=== PATIENT | female | born 1950 | race Caucasian/White ===

== ENCOUNTER → 2016-06-28 | Outpatient (CLI) | payer BC ==
[~2016-06-28] MED LIST: FUROSEMIDE 40 MG/4 ML VIAL ONE
--- NOTE | 2016-06-28 17:05 | NM ---
Renal Scintigraphy with Lasix History: 66-year-old with reported history of right renal mass. Comparison: None available. Technique: Following the uneventful intravenous administration of 11.5 mCi technetium 99m MAG3, plana r flow images of the abdomen and pelvis were obtained. Time activity curves were generated before and after the uneventful intravenous administration of 17.2 mg of Lasix IV 15 minutes into the exam. Dif ferential uptake and clearance are calculated. Findings: The left kidney is significantly larger than the right. There is increased blood flow to th e left kidney compared to the right. Relative function in the kidneys is 76% in the left kidney, 24% in the right kidney. Excretion from the kidneys is normal with no evidence of obstruction. T half max imum in the left kidney is 7.6 minutes and in the right kidney is 9.9 minutes. T half maximum post L asix is 6.5 minutes in the left kidney and 7.2 minutes in the right kidney. Impression: Small right kidney with diminished split function as above, with no evidence of obstructi on.
== END ==
LOC: FIMAGING 09:26
PROVIDERS: ATTEND Physician Assistant Medical
DX: N27.0 Small kidney, unilateral (principal)
CPT/HCPCS: 78708; A9562

== ENCOUNTER → 2016-06-29 | Outpatient (CLI) | payer BC ==
--- NOTE | 2016-06-29 16:37 | DX ---
Chest, PA and Lateral History: Right renal tumor. Staging. Findings: Lungs are clear, without mass, nodule infiltrate or co nsolidation. Heart size is normal. There is no adenopathy or pleural effusion. No lytic or sclerotic bone lesions are identified. A mild thoracic dextroscoliosis is stable. Right chest wall surgical cli ps are stable. Impression: Normal. No evidence for metastatic renal cancer.
== END ==
LOC: FIMAGING 13:41
PROVIDERS: ATTEND Physician Assistant Medical
DX: Z03.89 Encounter for observation for other suspected diseases and conditions ruled out (principal); C64.1 Malignant neoplasm of right kidney, except renal pelvis

== ENCOUNTER 2016-08-07 07:15 | Inpatient (IN) | payer BC, OTHER ==
--- NOTE | 2016-08-16 15:16 | GHP ---
[f rep st] PREOP HISTORY AND PHYSICAL ADMISSION DIAGNOSIS: Right lower pole renal mass, possible renal cell carcinoma. HISTORY OF PRESENT ILLNESS: This 66-year-old lady originally was noted because she had had persistent cystitis and was sent to urology from [facility]. She presented with imaging that showed she had a 3 cm mid to lower pole right renal mass with Hounsfield units of 31 precontrast and 118 postcontrast concerning for neoplasm. The right kidney is atrophied compared to the left. The left mid-pole stone appears perhaps to be in the wall of the kidney on the imaging, and she also has a kidney wall infarct noted on the left and the right kidney. Normal-appearing contrast fills the bladder without any bladder lesions. She has had a differential function study done that shows 24% of her renal function from the right side, 76% from the left. At the present time, we discussed the various options of therapy being a right partial robotic-assisted nephrectomy versus a radical right nephrectomy, and at the present time the plan is to attempt to do a partial nephrectomy on the right side with preservation of nephrons and if I feel it is necessary, then remove the entire kidney. She is aware that the kidney, being patulous and atrophic and mildly hydronephrotic, infections and complications are higher in that situation. At the present time, she is admitted for the above procedure. She has had a positive E coli infection in April 2016 treated with Bactrim and then switched to amoxicillin. Her only urinary symptoms have been some mild urgency. PAST MEDICAL HISTORY: Breast cancer, hypertension, kidney stone, osteoporosis, and urge incontinence. PAST SURGICAL HISTORY: Appendectomy and breast cancer. MEDICATIONS: Bystolic 10 mg a day, calcium, cephalexin, Fetzima, methenamine, tamoxifen, and vitamin D. ALLERGIES: No known drug allergies. FAMILY HISTORY: Heart disease and hypertension. SOCIAL HISTORY: [employer], moderate alcohol consumption, former smoker. and denies illicit substance use. REVIEW OF SYSTEMS: Negative for cardiac, respiratory, GI, and endocrine. PHYSICAL EXAM: VITAL SIGNS: Stable. CHEST: Clear. HEART: Regular rate and rhythm. ABDOMEN: Normal. No organomegaly, rebound, or guarding. EXTREMITIES : Lower extremities are normal. PLAN: At the present time, she is admitted for the right partial nephrectomy laparoscopic/robotic assisted with possible conversion to a right nephrectomy. Written and verbal consent has been obtained. She appeared to be well informed and was admitted for the above procedure. /[id number]/MODL MTDD
[2016-08-17] MEDS ORDERED: THROMBIN (RECOMBINANT) 5,000 UNIT VIAL TP ONE (06:52)
[2016-08-17] MEDS ORDERED: MANNITOL 20% 100 GM/500 ML BAG IV ONE (06:52)
[2016-08-17] MEDS ORDERED: SKIN ADHESIVE (DERMABOND) 1 EACH TP ONE (06:52)
[2016-08-17] MEDS ORDERED: LIDOCAINE 1% 2 ML INJ ONE (06:52)
[2016-08-17] MEDS ORDERED: PROPOFOL 200 MG/20 ML VIAL ONE (07:10)
[2016-08-17] MEDS ORDERED: METOCLOPRAMIDE 10 MG/2 ML VIAL ONE (07:11)
[2016-08-17] MEDS ORDERED: RANITIDINE 50 MG/2 ML VIAL ONE (07:11)
[2016-08-17] MEDS ORDERED: METOPROLOL TARTRATE 5 MG/5 ML INJ ONE (07:11)
[2016-08-17] MEDS ORDERED: ROCURONIUM 100 MG/10 ML VIAL ONE (07:11)
[2016-08-17] MEDS ORDERED: DEXAMETHASONE 4 MG/ML VIAL ONE ×2 (07:11)
[2016-08-17] MEDS ORDERED: LIDOCAINE 2% 100 MG/5 ML SYR ONE (07:12)
[2016-08-17] MEDS ORDERED: MIDAZOLAM 2 MG/2 ML VIAL ONE (07:21)
[2016-08-17] MEDS ORDERED: ceFAZolin 2 GM/DEXTROSE 100 ML IV ONE (07:30)
[2016-08-17] MEDS ORDERED: D5W LR 1,000 ML IV ONE (07:30)
[2016-08-17] MEDS ORDERED: LABETALOL HCL 5 MG/ML 20 ML MDV ONE (08:19)
[2016-08-17] MEDS ORDERED: BUPIVACAINE 0.5% 30 ML SDV ONE (09:32)
[2016-08-17] MEDS ORDERED: HYDROmorphONE/DILAUDID 1 MG/ML SYR ONE (10:29)
[2016-08-17] MEDS ORDERED: HYDROmorphONE/DILAUDID 1 MG/ML SYR IVP PRN (10:30)
[2016-08-17] MEDS ORDERED: ACETAMINOPHEN 325 MG TAB PO PRN (10:30)
[2016-08-17] MEDS ORDERED: ONDANSETRON 4 MG/2 ML VIAL IVP PRN (10:30)
[2016-08-17] MEDS ORDERED: ONDANSETRON DISINTEGRATING 4 MG TAB PO PRN (10:30)
--- NOTE | 2016-08-17 11:14 | GOP ---
[f rep st] OPERATIVE REPORT DATE OF OPERATION: 08/17/2016 SURGEON: Shayan Licona MD GRANULATOR TENDER: Marisabel Loredo CFA. ANESTHESIA: Dr. Zepeda provided general anesthesia. PREOPERATIVE DIAGNOSIS: Right renal mass suspicious for malignancy. POSTOPERATIVE DIAGNOSIS: Right renal mass suspicious for malignancy. PROCEDURE PERFORMED: FINDINGS: ESTIMATED BLOOD LOSS: Per Anesthesia. DESCRIPTION OF PROCEDURE: After undergoing general anesthesia, appropriate time -out, being prepped and draped in normal sterile fashion, padded in the appropriate position, and confirming the appropriate operative side, the Veress needle was placed in the supraumbilical site and insufflated the abdomen to 15 mmHg pressure with carbon dioxide. At that point, a 12 mm camera port was placed, two 8 mm robot ports were placed, then a 12 mm community relations assistant port. During the case, we placed a 5 mm port for liver retraction. All of these were under direct vision. Then, at that point mobilized the right colon and duodenum where I could identify the ureter and dissected that out to the point where I could identify the ureter and gonadal vein. The gonadal vein was dissected up and Hem-o-tanya clipped it as it came off just below the bifurcation of the right renal vein and vena cava. At that point, I dissected out where I could identify the vessels and for clamping as deemed necessary. De-fatted the kidney , and as I was de-fatting it, going to the posteroinferior pole lesion, it appeared that there was a dense inflammatory reaction, almost as though there was going to be a positive tumor going into the perinephric fat. So, at that point, I elected to do a total nephrectomy. Due to the fact that clinically the staging seemed to be a T2 lesion on that perinephric fat inflammatory reaction, there is not a good dissection plane between the two, so I elected to do a total nephrectomy. With the vascular stapler, went across the renal vein and artery, and then dissected the adrenal gland off the top of the kidney so as to preserve it. I then went along that vascular fatty area of the upper part of the kidney with the stapler. With electrocautery and scissors, I could mobilize the kidney, and then a vascular staple was placed across the ureter and gonadal vein cephalad to the iliac vein. At the end of the procedure, we decreased the intraabdominal pressure to 5 mmHg. There was no bleeding identified. Irrigated the kidney bed, and then placed the kidney in a retrieval bag after replacing the 12 mm community relations assistant port with the 15 mm port. Then at that point, the fascial closure device closed the camera port under direct vision with an 0 Vicryl and then extended our incision below the umbilicus in the midline to deliver the specimen out. Hemostasis was identified on the wound edges, and then the infraumbilical community relations assistant port extended incision was closed with an 0 Vicryl, and wounds were irrigated. Infiltrated the operative areas with Marcaine. Irrigated the subcutaneous tissue, and it was hemostatic. Then the skin approximated with 4-0 Monocryl and Dermabond placed. She tolerated the procedure well. PROCEDURE: Robotic-assisted radical nephrectomy and partial ureterectomy. CONSENT: Preoperatively, we discussed with the patient and her family that an attempt to do a partial nephrectomy was at hand, but because of the location of the tumor and decreased renal function on the right side, that we may end up doing a total nephrectomy with partial ureterectomy. Written and verbal consent was obtained. They were aware of the potential options of the surgery. SPECIMEN SENT TO PATHOLOGY: I did cut the specimen so I could identify the tumor to see grossly if it appeared it was involving the fatty tissue, and grossly it had that appearance to me. Final path is pending. No frozen sections obtained, and there is no gross disease noted. The gallbladder was normal at the end of the procedure with no staining, liver was not bleeding, and there was no staining in the intraabdominal cavity. She tolerated the procedure well and will be admitted for postoperative care. /[id number]/MODL MTDD
[2016-08-17] MEDS ORDERED: fentaNYL 100 MCG/2 ML INJ ONE (11:18)
[2016-08-17] MEDS: oxyCODONE IR 5 MG TAB PO PRN ×4 (13:05→23:35)
[2016-08-17] MEDS: D5W 1/2 NS W/ 20 KCl/L 1,000 ML IV SCH (23:58)
[2016-08-18] MEDS: oxyCODONE IR 5 MG TAB PO PRN ×5 (05:09→23:21)
[2016-08-18 06:04] LABS: ANION GAP 11 mEq/L (8-16); CALCIUM 8.7 mg/dL (8.5-10.4); CARBON DIOXIDE 23 mEq/l (22-31); CHLORIDE 106 mEq/L (97-110); CREATININE 0.7 mg/dL (0.6-1.0); GLOMERULAR FILTRATION RATE > 60; GLUCOSE 95 mg/dL (70-100); SODIUM 140 mEq/L (134-144)
[2016-08-18 08:23] LABS: % IMMATURE GRANULYOCYTES 0.3 % (0.0-1.1); ABSOLUTE IMMATURE GRANULOCYTES 0.04 10^3/uL (0.00-0.10); ADD DIFF? NO; ADD MORPH? NO; ADD SCAN? NO; ATYPICAL LYMPHOCYTE FLAG 0 (0-99); FRAGMENT RBC FLAG 0 (0-99); HEMATOCRIT 39.8 % (38.0-47.0); HEMOGLOBIN 13.2 g/dL (12.6-16.3); LEFT SHIFT FLG 0 (0-99); LIPEMIA HEMOLYSIS FLAG 80 (0-99); MEAN CELL HEMOGLOBIN 30.1 pg (27.9-34.1); MEAN CELL HEMOGLOBIN CONCENTR. 33.2 g/dL (32.4-36.7); MEAN CELL VOLUME 90.7 fL (81.5-99.8); MEAN PLATELET VOLUME 10.4 fL (8.7-11.7); PLATELET CLUMPS FLAG 0 (0-99); PLATELET COUNT 202 10^3/uL (150-400); RED BLOOD CELL COUNT 4.39 10^6/uL (4.18-5.33); RED CELL DISTRIBUTION WIDTH 12.8 % (11.5-15.2)
--- NOTE | 2016-08-18 08:34 | SOAPPROG ---
SOAP Progress Note Assessment/Plan: Assessment: Renal mass, right Acute POD # 1, labs ok, progressing well Plan: consider dc later today 08/18/16 09:00 Subjective: doing well Objective: Vital Signs Temp Pulse Resp BP Pulse Ox 36.8 C 85 14 121/78 H 97 08/18/16 08:00 08/18/16 08:00 08/18/16 08:00 08/18/16 08:00 08/18/16 08:00 Laboratory Results 08/18/16 07:57 08/18/16 05:37 08/17/16 08/18/16 08/19/16 05:59 05:59 05:59 Intake Total 2350 Output Total 2360 Balance -10 Physical Exam - Physical Exam General Appearance: alert Respiratory: lungs clear, No respiratory distress Cardiac/Chest: regular rate, rhythm Abdomen: soft (port sites normal) Back: No CVA tenderness Skin: warm/dry Extremities: No calf tenderness, No Maritza's sign Neuro/Psych: alert, oriented x 3 ICD10 Worksheet Patient Problems: Problems Problem Status Onset Renal mass, right Acute Malignant tumor of breast Active
[2016-08-18] MEDS ORDERED: NEBIVOLOL HCL 5 MG TAB PO SCH (09:00)
[2016-08-18] MEDS ORDERED: FETZIMA PO SCH (09:00)
[2016-08-18] MEDS ORDERED: PRILOSEC 20 MG PO SCH (09:00)
[2016-08-18] MEDS ORDERED: [UNRECOGNIZED DRUG - OTHER] PO SCH (09:00)
[2016-08-18] MEDS ORDERED: FETZIMA 40 MG PO SCH (09:00)
[2016-08-18] MEDS ORDERED: BYSTOLIC 5 MG PO SCH (09:00)
[2016-08-18] MEDS ORDERED: CALCIUM PO SCH (09:00)
[2016-08-18] MEDS ORDERED: TAMOXIFEN CITRATE PO SCH (09:00)
[2016-08-18] MEDS ORDERED: METHENAMINE HIPP PO SCH (09:00)
[2016-08-18] MEDS: PANTOPRAZOLE SODIUM 40 MG TAB PO SCH (09:40)
[2016-08-18] MEDS: CALCIUM CARBONATE 500 MG TAB PO SCH (09:40)
[2016-08-18] MEDS: NEBIVOLOL HCL 5 MG TAB PO SCH (09:40)
[2016-08-18] MEDS: METHENAMINE HIPP 1 GM TAB PO SCH (09:41)
[2016-08-18] MEDS: TAMOXIFEN CITRATE 10 MG TAB PO SCH (09:41)
[2016-08-18] MEDS: CHOLECALCIFEROL VIT D3 1,000 UNITS TAB PO SCH (09:41)
[2016-08-18] MEDS: FETZIMA 40 MG PO SCH (09:42)
[2016-08-18] MEDS: D5W 1/2 NS W/ 20 KCl/L 1,000 ML IV SCH ×2 (13:51→23:21)
[2016-08-19] MEDS: oxyCODONE IR 5 MG TAB PO PRN ×5 (05:06→21:40)
[2016-08-19] MEDS: CALCIUM CARBONATE 500 MG TAB PO SCH (09:07)
[2016-08-19] MEDS: CHOLECALCIFEROL VIT D3 1,000 UNITS TAB PO SCH (09:07)
[2016-08-19] MEDS: FETZIMA 40 MG PO SCH (09:08)
[2016-08-19] MEDS: TAMOXIFEN CITRATE 10 MG TAB PO SCH (09:09)
[2016-08-19] MEDS: METHENAMINE HIPP 1 GM TAB PO SCH (09:09)
[2016-08-19] MEDS: PANTOPRAZOLE SODIUM 40 MG TAB PO SCH (09:13)
[2016-08-19] MEDS: NEBIVOLOL HCL 5 MG TAB PO SCH (09:16)
[2016-08-19] MEDS: D5W 1/2 NS W/ 20 KCl/L 1,000 ML IV SCH ×2 (12:16→21:39)
--- NOTE | 2016-08-19 12:47 | SOAPPROG ---
SOAP Progress Note Assessment/Plan: Assessment: Renal mass, right Acute POD # 2, labs ok, progressing well Plan: consider dc later today 08/19/16 12:46 Subjective: doing well, no flatus Objective: Vital Signs Temp Pulse Resp BP Pulse Ox 36.6 C 87 16 135/80 H 94 08/19/16 12:00 08/19/16 12:00 08/19/16 12:00 08/19/16 12:00 08/19/16 12:00 Laboratory Results 08/18/16 07:57 08/18/16 05:37 08/18/16 08/19/16 08/20/16 05:59 05:59 05:59 Intake Total 2350 550 360 Output Total 2360 3051 650 Balance -10 -2501 -290 Physical Exam - Physical Exam General Appearance: alert Respiratory: No respiratory distress Cardiac/Chest: regular rate, rhythm Abdomen: soft Back: No CVA tenderness Extremities: non-tender, No calf tenderness, No Maritza's sign Neuro/Psych: alert, oriented x 3 ICD10 Worksheet Patient Problems: Problems Problem Status Onset Renal mass, right Acute Malignant tumor of breast Active
[2016-08-19] MEDS: METOCLOPRAMIDE 10 MG/2 ML VIAL IVP SCH ×2 (13:58→20:35)
[2016-08-20] MEDS: oxyCODONE IR 5 MG TAB PO PRN ×3 (00:32→12:49)
[2016-08-20] MEDS: METOCLOPRAMIDE 10 MG/2 ML VIAL IVP SCH (01:52)
[2016-08-20 05:22] LABS: % IMMATURE GRANULYOCYTES 0.5 % (0.0-1.1); ABSOLUTE IMMATURE GRANULOCYTES 0.07 10^3/uL (0.00-0.10); ADD DIFF? NO; ADD MORPH? NO; ADD SCAN? NO; ATYPICAL LYMPHOCYTE FLAG 10 (0-99); FRAGMENT RBC FLAG 0 (0-99); HEMATOCRIT 35.9 % (38.0-47.0); HEMOGLOBIN 11.8 g/dL (12.6-16.3); LEFT SHIFT FLG 0 (0-99); LIPEMIA HEMOLYSIS FLAG 80 (0-99); MEAN CELL HEMOGLOBIN 30.1 pg (27.9-34.1); MEAN CELL HEMOGLOBIN CONCENTR. 32.9 g/dL (32.4-36.7); MEAN CELL VOLUME 91.6 fL (81.5-99.8); MEAN PLATELET VOLUME 10.3 fL (8.7-11.7); PLATELET CLUMPS FLAG 0 (0-99); PLATELET COUNT 201 10^3/uL (150-400); RED BLOOD CELL COUNT 3.92 10^6/uL (4.18-5.33)
[2016-08-20 05:39] LABS: ANION GAP 6 mEq/L (8-16); CALCIUM 7.9 mg/dL (8.5-10.4); CARBON DIOXIDE 27 mEq/l (22-31); CHLORIDE 103 mEq/L (97-110); CREATININE 0.7 mg/dL (0.6-1.0); GLOMERULAR FILTRATION RATE > 60; GLUCOSE 117 mg/dL (70-100); POTASSIUM 4.5 mEq/L (3.5-5.2); SODIUM 136 mEq/L (134-144)
[2016-08-20 07:39] VITALS: TEMP 98.1
[2016-08-20] MEDS: CHOLECALCIFEROL VIT D3 1,000 UNITS TAB PO SCH (08:21)
[2016-08-20] MEDS: CALCIUM CARBONATE 500 MG TAB PO SCH (08:21)
[2016-08-20] MEDS: METHENAMINE HIPP 1 GM TAB PO SCH (08:22)
[2016-08-20] MEDS: TAMOXIFEN CITRATE 10 MG TAB PO SCH (08:22)
[2016-08-20] MEDS: NEBIVOLOL HCL 5 MG TAB PO SCH (08:26)
[2016-08-20] MEDS: PANTOPRAZOLE SODIUM 40 MG TAB PO SCH (08:26)
[2016-08-20] MEDS: FETZIMA 40 MG PO SCH (08:27)
[2016-08-20 11:24] VITALS: BP 119/71; PULSE 76; RESP 16; O2SAT 92
--- NOTE | 2016-08-20 12:57 | SOAPPROG ---
SOAP Progress Note Assessment/Plan: Assessment: Renal mass, right Acute POD # 3, labs ok, progressing well Plan: consider dc later today 08/20/16 12:56 Subjective: improving Objective: Vital Signs Temp Pulse Resp BP Pulse Ox 36.7 C 76 16 119/71 92 08/20/16 11:22 08/20/16 11:22 08/20/16 11:22 08/20/16 11:22 08/20/16 11:22 Laboratory Results 08/20/16 04:56 08/20/16 04:56 08/19/16 08/20/16 08/21/16 05:59 05:59 05:59 Intake Total 550 1800 Output Total 3051 3150 Balance -2501 -1350 Physical Exam - Physical Exam General Appearance: alert Respiratory: No respiratory distress Cardiac/Chest: regular rate, rhythm Abdomen: soft Back: CVA tenderness (mild right side noted tender) Extremities: No calf tenderness, No Maritza's sign Neuro/Psych: oriented x 3 ICD10 Worksheet Patient Problems: Problems Problem Status Onset Renal mass, right Acute Malignant tumor of breast Active
== END 2016-08-20 15:03 | disposition home or self-care (01) | DRG 658 ==
LOC: F1N 08-17 05:54 → F3E 08-17 11:40
PROVIDERS: ADMIT Specialist; ATTEND Specialist
PROC: 0TB60ZZ Excision of Right Ureter, Open Approach (ICD-10-PCS; principal; 2016-08-17 07:15)
PROC: 0TT00ZZ Resection of Right Kidney, Open Approach (ICD-10-PCS; principal; 2016-08-17 07:15)
PROC: 8E0W0CZ Robotic Assisted Procedure of Trunk Region, Open Approach (ICD-10-PCS; principal; 2016-08-17 07:15)
DX: D30.01 Benign neoplasm of right kidney (principal); Z85.3 Personal history of malignant neoplasm of breast; I10 Essential (primary) hypertension; Z87.442 Personal history of urinary calculi; M81.0 Age-related osteoporosis without current pathological fracture
CPT/HCPCS: J0690; J1100; J1170; J2001; J2250; J2405; J2704; J2765; J2780; J3010; J3490

== ENCOUNTER → 2017-03-21 | Outpatient (CLI) | payer BC, OTHER | LOC: FIMAGING 09:21 | PROVIDERS: ATTEND Internal Medicine Hematology & Oncology | DX: Z12.31 Encounter for screening mammogram for malignant neoplasm of breast (principal); Z85.3 Personal history of malignant neoplasm of breast | CPT/HCPCS: G0202 ==

== ENCOUNTER → 2017-09-12 | Outpatient (CLI) | payer BC, OTHER | LOC: BRMIMAGING 13:08 | PROVIDERS: ATTEND Internal Medicine Hematology & Oncology | DX: M81.0 Age-related osteoporosis without current pathological fracture (principal); C50.919 Malignant neoplasm of unspecified site of unspecified female breast; Z78.0 Asymptomatic menopausal state ==

== ENCOUNTER → 2018-03-27 | Outpatient (CLI) | payer BC | LOC: FIMAGING 09:04 | PROVIDERS: ATTEND Internal Medicine Hematology & Oncology | DX: Z12.31 Encounter for screening mammogram for malignant neoplasm of breast (principal); Z85.3 Personal history of malignant neoplasm of breast; Z92.3 Personal history of irradiation; Z92.21 Personal history of antineoplastic chemotherapy ==

== ENCOUNTER → 2018-07-02 | Outpatient (CLI) | payer BC, OTHER | LOC: FIMAGING 07:04 | PROVIDERS: ATTEND Surgery | DX: I72.8 Aneurysm of other specified arteries (principal); K76.0 Fatty (change of) liver, not elsewhere classified; K80.20 Calculus of gallbladder without cholecystitis without obstruction ==

== ENCOUNTER 2018-07-30 06:22 | Day surgery (SDC) | payer BC, OTHER ==
[2018-07-30] MEDS ORDERED: LR 1,000 ML IV ONE (06:38)
[2018-07-30] MEDS ORDERED: LIDOCAINE 1% 2 ML INJ ID PRN (06:38)
[2018-07-30] MEDS ORDERED: MIDAZOLAM 2 MG/2 ML VIAL IVP ONE (06:56)
--- NOTE | 2018-07-30 06:59 | PDANEPAE ---
ANE Past Medical History - Cardiovascular History Hx Hypertension: Yes Hx Arrhythmias: No Hx Chest Pain: No Hx Coronary Artery / Peripheral Vascular Disease: No Hx CHF / Valvular Disease: No Hx Palpitations: No - Pulmonary History Hx COPD: No Hx Asthma/Reactive Airway Disease: No Hx Recent Upper Respiratory Infection: No Hx Oxygen in Use at Home: No Hx Sleep Apnea: No Sleep Apnea Screening Result - Last Documented: Negative - Neurologic History Hx Cerebrovascular Accident: No Hx Seizures: No Hx Dementia: No - Endocrine History Hx Diabetes: No - Renal History Hx Renal Disorders: Yes Renal History Comment: RIGHT RENAL TUMOR (benign) 2016 s/p nephrectomy -> Cr 0.8. KIDNEY STONES - Liver History Hx Hepatic Disorders: No - Neurological & Psychiatric Hx Hx Neurological and Psychiatric Disorders: Yes Neurological / Psychiatric History Comment: depression in past - Cancer History Hx Cancer: Yes Cancer History Comment: RIGHT BREAST CANCER 2011 - Congenital Disorder History Hx Congenital Disorders: No - GI History Hx Gastrointestinal Disorders: Yes Gastrointestinal History Comment: GERD - Other Health History Other Health History: polymyalgia rheumatica. 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 uterine polyps. eczema on face on occasion. upper partial plate - Chronic Pain History Chronic Pain: No - Surgical History Prior Surgeries: right nephrectomy 08/2016. RIGHT BREAST LUMPECTOMY WITH LYMPH NODE RESECTION 03/2012. RIGHT FOOT BUNIONECTOMY 2009. C- SECTIONS 1985 & 1980. APPENDECTOMY 1970 ANE Review of Systems Review of Systems: - Exercise capacity METS (RN): 4 METS ANE Patient History - Allergies Allergies/Adverse Reactions: No Known Allergies Allergy (Verified 07/12/18 11:01) - Home Medications Home medications: home medication list seen and reviewed Home Medications: Calcium Carbonate [Calcium] 08/04/16 [Last Taken 08/10/16] Cholecalciferol Vit D3 [Vitamin D3 (*)] 07/12/18 [Last Taken Unknown] Metoprolol Tartrate 07/12/18 [Last Taken Unknown] - NPO status NPO Status: no food or drink >8 hours - Anes Hx Anes Hx: no prior problems - Smoking Hx Smoking Status: Former smoker - Family Anes Hx Family Hx Anesthesia Complications: none ANE Labs/Vital Signs - Vital Signs Vital Signs: reviewed preoperatively; see RN documention for details Height: 157.48 cm Weight: 56.699 kg ANE Physical Exam - Airway Neck exam: FROM Mallampati Score: Class 3 Mouth exam: dentures, small mouth opening - ASA Status ASA Status: II ANE Anesthesia Plan Anesthesia Plan: GA w LMA
[2018-07-30] MEDS ORDERED: PROPOFOL 200 MG/20 ML VIAL ONE (07:35)
[2018-07-30] MEDS ORDERED: fentaNYL 100 MCG/2 ML INJ ONE (07:35)
--- NOTE | 2018-07-30 08:02 | PDHPUP ---
History & Physical Update H&P update statement: This history and physical update is based on an assessment of the patient which was completed after admission or registration (within 24 hours), but prior to the surgery/procedure. H&P update: H&P reviewed & patient examined, no change in patient's condition since H&P completed
[2018-07-30] MEDS ORDERED: LIDOCAINE 2% 100 MG/5 ML SYR ONE (08:12)
[2018-07-30] MEDS ORDERED: KETOROLAC 30 MG/1 ML SDV ONE (08:18)
[2018-07-30] MEDS ORDERED: METOCLOPRAMIDE 10 MG/2 ML VIAL ONE (08:18)
[2018-07-30] MEDS ORDERED: ONDANSETRON 4 MG/2 ML VIAL ONE (08:18)
[2018-07-30] MEDS ORDERED: DEXAMETHASONE 4 MG/ML VIAL ONE (08:18)
[2018-07-30] MEDS ORDERED: ePHEDrine SULFATE 25 MG/5 ML SYR ONE (08:47)
[2018-07-30] MEDS ORDERED: ALBUTEROL 3 ML DEYVIAL IH PRN (09:03)
[2018-07-30] MEDS ORDERED: DEXAMETHASONE 4 MG/ML VIAL IVP PRN (09:03)
[2018-07-30] MEDS ORDERED: DIAZEPAM 5 MG/ML 1 ML SYR IVP PRN (09:03)
[2018-07-30] MEDS ORDERED: ONDANSETRON 4 MG/2 ML VIAL IVP PRN (09:03)
[2018-07-30] MEDS ORDERED: HYDROmorphONE/DILAUDID 2 MG/ML INJ IVP PRN (09:03)
[2018-07-30] MEDS ORDERED: NALOXONE HCL 0.4 MG/ML INJ IVP PRN (09:03)
[2018-07-30] MEDS ORDERED: ACETAMINOPHEN 500 MG TAB PO PRN (09:03)
[2018-07-30] MEDS ORDERED: fentaNYL 100 MCG/2 ML INJ IVP PRN (09:03)
[2018-07-30] MEDS ORDERED: oxyCODONE IR 5 MG TAB PO PRN (09:03)
[2018-07-30] MEDS ORDERED: MEPERIDINE 25 MG/0.5 ML AMP IVP PRN (09:03)
[2018-07-30] MEDS ORDERED: LR 500 ML IV PRN (09:03)
[2018-07-30] MEDS ORDERED: PROMETHAZINE HCL 25 MG/ML INJ IVP PRN (09:03)
[2018-07-30] MEDS ORDERED: PHENYLEPHRINE HCL 100 MCG/ML SYR ONE (09:10)
--- NOTE | 2018-07-30 10:11 | POSTANESTH ---
Post Anesthetic Evaluation Cardiovascular Status: Normal, Stable Respiratory Status: Normal, Stable Level of Consciousness/Mental Status: Can Participate in Eval Pain Control: Adequate, Prn Tx Ordered Nausea/Vomiting Control: Adequate, Prn Tx Ordered Complications Possibly Related to Anesthesia: None Noted
[2018-07-30 10:37] VITALS: BP 129/77
--- NOTE | 2018-07-30 12:02 | POSTOPPROG ---
Post Op Note Date of Operation: 07/30/18 Surgeon: Lexie Kerns Anesthesiologist: Alta Pimentel Anesthesia: LMA Pre-op Diagnosis: PMB , endometrial mass Post-op Diagnosis: same Indication: same Procedure: H/S polypectomy Findings: extremly narrow vagina , stenotic cervix, posterior wall polyps Inf/Abcess present in the surg proc area at time of surgery?: No EBL: Minimal Complications: none Specimen(s): polyps
--- NOTE | 2018-07-30 13:52 | GOP ---
[f rep st] OPERATIVE REPORT DATE OF OPERATION: 07/30/2018 SURGEON: Lexie Kerns MD ANESTHESIA: General with LMA. ANESTHESIOLOGIST: Alta Pimentel MD PREOPERATIVE DIAGNOSIS: 1. Postmenopausal bleeding. 2. Endometrial mass. POSTOPERATIVE DIAGNOSIS: 1. Postmenopausal bleeding. 2. Endometrial mass. 3. Likely uterine polyps. PROCEDURE PERFORMED: Hysteroscopic polypectomy, very difficult. FINDINGS: 1. Very narrow vaginal introitus and very narrow vaginal mijares. 2. Extremely stenotic cervix. 3. Posterior wall endometrial polyp. INDICATIONS: Patient is a 68-year-old who has been on tamoxifen for the past 2 years and was switche d from vaginal estrogen Estrace to vaginal estrogen Imvexxy. Soon after that, had significant bleedi ng and ultrasound showed a 2.5 cm heterogeneous mass. I recommended hysteroscopic resection of this. DESCRIPTION OF PROCEDURE: With informed consent signed, patient was taken to the operating room, abbie juvencio under general anesthesia without complication. She previously emptied her bladder. Prepped and draped in the usual sterile fashion. Very, very narrow speculum placed in the vagina and cervix was grasped first with a tenaculum, then a Anastacio as it was very hard to get traction on the anterior cervix. Dilation was very difficult jem use the cervix was so stenotic and the vagina was so narrow, taking about 30 minutes just to be able to dilate the cervix up to 6 mm, but it was done very gradually with the very small dilators. Once i t was felt that there was enough dilation to place the hysteroscope, this was done, however, there wa s a false channel done by the dilators, and pulling back on the hysteroscope, I was able to see the e ntry to the uterus, and so, I was able to place the hysteroscope into the endometrial cavity. This a lso took about 10 minutes to figure out. Once it was felt the hysteroscope was in the endometrial ca vity, findings noted, and this was 2 quite large posterior wall polyps, normal tubal ostia. The Corrie lear hysteroscopic morcellator placed into the hysteroscope and resection of the polyps done without complication. Once it was felt that hemostasis was noted and that all the polyp tissue was removed, the hysteroscope was removed and no cervical bleeding. Net fluid deficit about [address] d in supine position, awakened in the operating room, taken to the recovery room in stable condition, tolerated the procedure well. COMPLICATIONS: None. Copy requested to: Primary care physician /[id number]/MODL
== END 2018-07-30 11:10 | disposition home or self-care (01) ==
LOC: FSGY 06:22
PROVIDERS: ATTEND Obstetrics & Gynecology Gynecology
PROC: 0UDB8ZX Extraction of Endometrium, Via Natural or Artificial Opening Endoscopic, Diagnostic (ICD-10-PCS; principal; 2018-07-30 08:00)
DX: N95.0 Postmenopausal bleeding (principal); N84.0 Polyp of corpus uteri; N88.2 Stricture and stenosis of cervix uteri; I10 Essential (primary) hypertension; M35.3 Polymyalgia rheumatica; I72.8 Aneurysm of other specified arteries; Z85.3 Personal history of malignant neoplasm of breast; Z87.891 Personal history of nicotine dependence; Z87.442 Personal history of urinary calculi; Z90.5 Acquired absence of kidney
CPT/HCPCS: 58558; C1782; J1100; J1885; J2001; J2250; J2370; J2405; J2704; J2765; J3010

== ENCOUNTER → 2018-11-13 | Outpatient (CLI) | payer BC | LOC: FIMAGING 09:59 ==